=== PATIENT | male | born 1960 | race Caucasian/White ===

== ENCOUNTER 2017-11-03 08:09 | Inpatient (IN) | payer MEDICAID ==
[~2017-11-03] VITALS: Ht 175.3 cm; Wt 69.6 kg
[2017-11-03] MEDS ORDERED: ASPIRIN 81MG TABLET PO STA (08:15)
[2017-11-03 08:30] LABS: BASOPHILS % 0.8 % (0.0-2.0); EOSINOPHILS % 1.4 % (0.0-5.0); HEMATOCRIT. 34.2 % (42.0-52.0); HEMOGLOBIN. 11.5 g/dL (14.0-18.0); LYMPHOCYTES % 19.1 % (20.0-50.0); MEAN CORPUSCULAR HEMOGLOBIN 31.9 pg (28.0-32.0); MEAN CORPUSCULAR VOLUME 94.6 fL (80.0-94.0); MEAN PLATELET VOLUME 8.5 fl (7.4-10.4); MONOCYTES % 9.2 % (2.0-8.0); NEUTROPHILS % 69.5 % (40.0-76.0); PLATELET 195 x1000/uL (130-400); RED BLOOD CELL COUNT 3.61 mill/uL (4.7-6.1); RED CELL DISTRIBUTION WIDTH 14.1 % (11.6-14.6)
[2017-11-03] MEDS ORDERED: FENTANYL CITRATE/PF 50MCG/ML 2ML VIAL IV ONE (08:30)
[2017-11-03] MEDS ORDERED: ONDANSETRON HCL 4MG/2ML VIAL IV ONE (08:30)
[2017-11-03 08:39] LABS: INR 1.2; PROTHROMBIN TIME 12.8 sec (9.4-11.6)
[2017-11-03 08:48] LABS: CARBON DIOXIDE 31 mEq/L (21-32); CHLORIDE 97 mEq/L (98-107); PHOSPHORUS 2.3 mg/dL (2.5-4.9); TROPONIN I 0.03 ng/mL (0.00-0.04)
[2017-11-03] MEDS ORDERED: LEVOFLOXACIN 500MG PREMIX 100 ML IV ONE (09:00)
[2017-11-03] MEDS ORDERED: IPRATROPIUM/ALBUTEROL 0.5-3(2.5)MG/3ML NEB INH PRN (12:00)
[2017-11-03] MEDS ORDERED: GUAIFENESIN 200MG/10ML SUGAR FREE UDC PO PRN (12:00)
[2017-11-03] MEDS ORDERED: ENOXAPARIN 40MG/0.4ML SYR SUBCUT SCH (12:00)
[2017-11-03] MEDS ORDERED: LORAZEPAM 0.5MG TABLET PO PRN (12:00)
[2017-11-03] MEDS ORDERED: DEXTROSE 50% WATER 50ML SYRINGE IV PRN (12:00)
[2017-11-03] MEDS ORDERED: DOCUSATE SODIUM 100MG CAPSULE PO PRN (12:00)
[2017-11-03] MEDS ORDERED: MAGNESIUM/ALUMINUM HYDROXIDE/SIMETHICONE 30ML UDC PO PRN (12:00)
[2017-11-03] MEDS ORDERED: DIPHENHYDRAMINE 50MG/ML VIAL IV PRN (12:00)
[2017-11-03] MEDS ORDERED: NITROGLYCERIN 0.4MG TABLET SL SL PRN (12:00)
[2017-11-03] MEDS ORDERED: ZOLPIDEM TARTRATE 5MG TABLET PO PRN (12:00)
[2017-11-03] MEDS ORDERED: CLONIDINE 0.1MG TABLET PO PRN (12:00)
[2017-11-03] MEDS ORDERED: NA PHOS,M-B/NA PHOS,DI-BA ENEMA 118ML PR PRN (12:00)
[2017-11-03 13:00] VITALS: BP 153/83
[2017-11-03] MEDS: FAMOTIDINE 20MG/2ML VIAL IV SCH (13:00)
[2017-11-03] MEDS: BLOOD SUGAR DIAGNOSTIC STRIP TEST SCH ×3 (13:12→20:39)
[2017-11-03] MEDS: ENOXAPARIN 30MG/0.3ML SYR SUBCUT SCH (13:12)
[2017-11-03] MEDS: ONDANSETRON HCL 4MG/2ML VIAL IV PRN (13:12)
[2017-11-03] MEDS: TRAMADOL 50MG TABLET PO PRN ×2 (13:24→20:10)
[2017-11-03 13:45] VITALS: BP 153/83
[2017-11-03] MEDS: INSULIN LISPRO 100 UNITS/ML SUBCUT SCH ×3 (15:01→20:54)
[2017-11-03] MEDS: ACETAMINOPHEN 325MG TABLET PO PRN ×2 (15:03→22:36)
[2017-11-03 16:00] VITALS: BP 135/106
[2017-11-03 17:49] LABS: CREATINE KINASE MB FRACTION 2.6 ng/mL (0.5-3.6); TROPONIN I 0.03 ng/mL (0.00-0.04)
[2017-11-03 20:04] VITALS: BP 127/91
[2017-11-03] MEDS: METOPROLOL TARTRATE 25MG TABLET PO SCH (20:11)
[2017-11-03 20:49] LABS: *AMPHETAMINES SCREEN URINE NEGATIVE (NEGATIVE); *BARBITURATES SCREEN URINE NEGATIVE (NEGATIVE); *BENZODIAZEPINES SCREEN URINE NEGATIVE (NEGATIVE); *COCAINE SCREEN URINE NEGATIVE (NEGATIVE); CANNABINOID URINE SCREEN NEGATIVE (NEGATIVE); METHADONE URINE SCREEN NEGATIVE (NEGATIVE); OPIATES URINE SCREEN NEGATIVE (NEGATIVE); PHENCYCLIDINE URINE SCREEN NEGATIVE (NEGATIVE)
[2017-11-03] MEDS ORDERED: FAMOTIDINE 20MG/2ML VIAL IV SCH (21:00)
[2017-11-04] VITALS (7 sets, daily range): BP systolic 119–143; BP diastolic 61–84
[2017-11-04 01:12] LABS: CREATINE KINASE MB FRACTION 2.9 ng/mL (0.5-3.6); TROPONIN I 0.03 ng/mL (0.00-0.04)
[2017-11-04] MEDS: TRAMADOL 50MG TABLET PO PRN ×4 (02:44→22:14)
[2017-11-04] MEDS: BLOOD SUGAR DIAGNOSTIC STRIP TEST SCH ×4 (06:52→21:36)
[2017-11-04] MEDS: FAMOTIDINE 20MG/2ML VIAL IV SCH (08:08)
[2017-11-04] MEDS: ONDANSETRON HCL 4MG/2ML VIAL IV PRN ×2 (08:08→17:50)
[2017-11-04] MEDS: INSULIN LISPRO 100 UNITS/ML SUBCUT SCH ×4 (08:08→21:00)
[2017-11-04] MEDS: ENOXAPARIN 30MG/0.3ML SYR SUBCUT SCH (08:08)
[2017-11-04] MEDS: METOPROLOL TARTRATE 25MG TABLET PO SCH ×3 (08:14→22:01)
[2017-11-04] MEDS ORDERED: ASPIRIN 325MG EC TABLET PO SCH (09:00)
[2017-11-04 16:46] LABS: BASOPHILS % 0.9 % (0.0-2.0); EOSINOPHILS % 0.7 % (0.0-5.0); HEMATOCRIT. 35.3 % (42.0-52.0); HEMOGLOBIN. 11.7 g/dL (14.0-18.0); LYMPHOCYTES % 17.7 % (20.0-50.0); MEAN CORPUSCULAR HEMOGLOBIN 32.2 pg (28.0-32.0); MEAN CORPUSCULAR VOLUME 96.8 fL (80.0-94.0); MEAN PLATELET VOLUME 9.6 fl (7.4-10.4); MONOCYTES % 8.4 % (2.0-8.0); NEUTROPHILS % 72.3 % (40.0-76.0); PLATELET 152 x1000/uL (130-400); RED BLOOD CELL COUNT 3.65 mill/uL (4.7-6.1); RED CELL DISTRIBUTION WIDTH 14.2 % (11.6-14.6)
== END 2017-11-04 22:40 | disposition home or self-care (01) | DRG 203 ==
LOC: ER 08:19 → 7WST 08:28 → EDBEDREQ 08:33 → ENRESERV 10:46
PROVIDERS: ADMIT Internal Medicine; ATTEND Internal Medicine
DX: R07.89 Other chest pain (principal); N17.9 Acute kidney failure, unspecified; E44.0 Moderate protein-calorie malnutrition; E11.22 Type 2 diabetes mellitus with diabetic chronic kidney disease; I12.0 Hypertensive chronic kidney disease with stage 5 chronic kidney disease or end stage renal disease; E83.39 Other disorders of phosphorus metabolism; E11.51 Type 2 diabetes mellitus with diabetic peripheral angiopathy without gangrene; D63.8 Anemia in other chronic diseases classified elsewhere; N18.6 End stage renal disease; Z79.82 Long term (current) use of aspirin; Z89.512 Acquired absence of left leg below knee; Z99.2 Dependence on renal dialysis; Z86.19 Personal history of other infectious and parasitic diseases; Z88.0 Allergy status to penicillin; Z79.899 Other long term (current) drug therapy; Z76.5 Malingerer [conscious simulation]; Z68.22 Body mass index [BMI] 22.0-22.9, adult
CPT/HCPCS: 36415; 71010; 80051; 80053; 80061; 80305; 82550; 82553; 82962; 83036; 83690; 83735; 84100; 84484; 85025; 85610; 85730; 93005; 93970; 96374; 96375; 99291; J1650; J1815; J1956; J2405; J3010; J3490; J7030

== ENCOUNTER 2017-11-30 15:09 | Emergency (ER) | payer MEDICAID ==
[~2017-11-30] VITALS: Ht 170.2 cm; Wt 82.0 kg
[2017-11-30 16:46] LABS: BASOPHILS % 0.5 % (0.0-2.0); EOSINOPHILS % 0.9 % (0.0-5.0); HEMATOCRIT. 24.3 % (42.0-52.0); HEMOGLOBIN. 8.7 g/dL (14.0-18.0); LYMPHOCYTES % 12.2 % (20.0-50.0); MEAN CORPUSCULAR HEMOGLOBIN 34.3 pg (28.0-32.0); MEAN CORPUSCULAR VOLUME 95.9 fL (80.0-94.0); MEAN PLATELET VOLUME 7.7 fl (7.4-10.4); MONOCYTES % 8.3 % (2.0-8.0); NEUTROPHILS % 78.1 % (40.0-76.0); PLATELET 277 x1000/uL (130-400); RED BLOOD CELL COUNT 2.54 mill/uL (4.7-6.1); RED CELL DISTRIBUTION WIDTH 16.5 % (11.6-14.6)
[2017-11-30 16:52] LABS: CHLORIDE 99 mEq/L (98-107)
[2017-11-30 16:53] LABS: INR 1.3; PROTHROMBIN TIME 13.8 sec (9.4-11.6)
[2017-11-30 16:58] LABS: CARBON DIOXIDE 25 mEq/L (21-32)
[2017-11-30 17:03] LABS: TROPONIN I 0.04 ng/mL (0.00-0.04)
[2017-11-30] MEDS ORDERED: MORPHINE SULFATE 4 MG/ML CPJ (NOT FOR IM USE) IV ONE (20:15)
[2017-12-01 00:23] VITALS: BP 145/72
== END 2017-12-01 00:24 | disposition home or self-care (01) ==
LOC: ER 15:30
DX: R18.8 Other ascites (principal); I12.0 Hypertensive chronic kidney disease with stage 5 chronic kidney disease or end stage renal disease; E11.22 Type 2 diabetes mellitus with diabetic chronic kidney disease; N18.6 End stage renal disease; Z99.2 Dependence on renal dialysis; Z88.0 Allergy status to penicillin
CPT/HCPCS: 36415; 49083; 71045; 74176; 80053; 83880; 84484; 85025; 85610; 93005; 96374; 99285; J2270; Z7610

== ENCOUNTER 2018-01-13 12:13 | Emergency (ER) | payer MEDICAID, OTHER ==
[~2018-01-13] VITALS: Ht 167.6 cm; Wt 69.0 kg
[~2018-01-13 12:13] MED LIST: VANC1PLA11 IV
[2018-01-13] MEDS ORDERED: MORPHINE SULFATE 10 MG/ML CPJ IM ONE (12:45)
[2018-01-13] MEDS ORDERED: IBUPROFEN 600MG TABLET PO ONE (15:00)
[2018-01-13 16:13] VITALS: BP 162/78
== END 2018-01-13 16:15 | disposition home or self-care (01) ==
LOC: ER 12:28
DX: S30.0XXA Contusion of lower back and pelvis, initial encounter (principal); E11.9 Type 2 diabetes mellitus without complications; I10 Essential (primary) hypertension; Z88.0 Allergy status to penicillin; Z99.2 Dependence on renal dialysis; W19.XXXA Unspecified fall, initial encounter; Y93.89 Activity, other specified; Y92.89 Other specified places as the place of occurrence of the external cause; Y99.8 Other external cause status
CPT/HCPCS: 72131; 72192; 99284; J2270; Z7610

== ENCOUNTER 2018-02-01 08:18 | Emergency (ER) | payer MEDICARE, MEDICAID ==
[~2018-02-01] VITALS: Ht 172.7 cm; Wt 91.0 kg
[2018-02-01] MEDS ORDERED: ONDANSETRON HCL 4MG/2ML VIAL IV ONE (08:45)
[2018-02-01] MEDS ORDERED: MORPHINE SULFATE 4 MG/ML CPJ (NOT FOR IM USE) IV ONE (08:45)
[2018-02-01 09:29] LABS: BASOPHILS % 0.6 % (0.0-2.0); EOSINOPHILS % 0.5 % (0.0-5.0); HEMATOCRIT. 34.5 % (42.0-52.0); HEMOGLOBIN. 11.4 g/dL (14.0-18.0); LYMPHOCYTES % 9.4 % (20.0-50.0); MEAN CORPUSCULAR HEMOGLOBIN 32.2 pg (28.0-32.0); MEAN PLATELET VOLUME 9.1 fl (7.4-10.4); MONOCYTES % 8.4 % (2.0-8.0); NEUTROPHILS % 81.1 % (40.0-76.0); PLATELET 225 x1000/uL (130-400); RED BLOOD CELL COUNT 3.55 mill/uL (4.7-6.1); RED CELL DISTRIBUTION WIDTH 18.1 % (11.6-14.6)
[2018-02-01 09:38] LABS: INR 1.3
[2018-02-01 10:14] LABS: CHLORIDE 99 mEq/L (98-107)
[2018-02-01 10:22] LABS: PHOSPHORUS 5.3 mg/dL (2.5-4.9); TROPONIN I 0.03 ng/mL (0.00-0.04)
[2018-02-01 14:36] VITALS: BP 143/84
== END 2018-02-01 14:42 | disposition home or self-care (01) ==
LOC: ER 08:36 → CANBEDREQ 21:18
DX: S20.212A Contusion of left front wall of thorax, initial encounter (principal); S40.012A Contusion of left shoulder, initial encounter; S70.02XA Contusion of left hip, initial encounter; I12.0 Hypertensive chronic kidney disease with stage 5 chronic kidney disease or end stage renal disease; E11.22 Type 2 diabetes mellitus with diabetic chronic kidney disease; N17.9 Acute kidney failure, unspecified; N18.6 End stage renal disease; R26.89 Other abnormalities of gait and mobility; Z88.0 Allergy status to penicillin; Z89.512 Acquired absence of left leg below knee; Z99.2 Dependence on renal dialysis; W01.0XXA Fall on same level from slipping, tripping and stumbling without subsequent striking against object, initial encounter; Y93.E1 Activity, personal bathing and showering; Y92.89 Other specified places as the place of occurrence of the external cause; Y99.8 Other external cause status
CPT/HCPCS: 36415; 70450; 71045; 71250; 73030; 74176; 80053; 83690; 83735; 84100; 84484; 85025; 85610; 85730; 86850; 86900; 86901; 93005; 96374; 96375; 99285; J2270; J2405; A4565

== ENCOUNTER 2018-03-10 16:02 | Emergency (ER) | payer MEDICAID ==
[~2018-03-10] VITALS: Ht 175.3 cm; Wt 66.0 kg
[2018-03-10] MEDS ORDERED: HYDROCODONE/ACETAMINOPHEN 5/325MG TABLET PO ONE (16:30)
[2018-03-10] MEDS ORDERED: BACITRACIN ZINC OINT UDPKT TOP ONE (16:30)
[2018-03-10 16:49] VITALS: BP 137/66
== END 2018-03-10 20:02 | disposition home or self-care (01) ==
LOC: ER 16:02
DX: T24.212A Burn of second degree of left thigh, initial encounter (principal); T21.22XA Burn of second degree of abdominal wall, initial encounter; E11.22 Type 2 diabetes mellitus with diabetic chronic kidney disease; I12.0 Hypertensive chronic kidney disease with stage 5 chronic kidney disease or end stage renal disease; N18.6 End stage renal disease; Z88.0 Allergy status to penicillin; Z99.2 Dependence on renal dialysis; Z89.512 Acquired absence of left leg below knee; X10.0XXA Contact with hot drinks, initial encounter; Y93.89 Activity, other specified; Y92.89 Other specified places as the place of occurrence of the external cause; Y99.8 Other external cause status
CPT/HCPCS: 16020; 93005; 99284

== ENCOUNTER 2018-07-14 22:20 | Emergency (ER) | payer MEDICAID ==
[~2018-07-14] VITALS: Ht 172.7 cm; Wt 70.0 kg
[2018-07-14] MEDS ORDERED: TETANUS, DIPHTHERIA, PERTUSSIS VAC/PF 0.5ML (>7YR OLD) IM ONE (23:30)
[2018-07-14] MEDS ORDERED: ONDANSETRON 4MG ODT PO ONE (23:45)
[2018-07-15] MEDS ORDERED: HYDROCODONE/ACETAMINOPHEN 5/325MG TABLET PO ONE (01:30)
[2018-07-15 02:03] VITALS: BP 137/78
== END 2018-07-15 02:04 | disposition home or self-care (01) ==
LOC: ER 22:20
DX: S90.31XA Contusion of right foot, initial encounter (principal); E11.9 Type 2 diabetes mellitus without complications; I10 Essential (primary) hypertension; N28.9 Disorder of kidney and ureter, unspecified; K75.9 Inflammatory liver disease, unspecified; Z89.411 Acquired absence of right great toe; Z89.512 Acquired absence of left leg below knee; Z99.2 Dependence on renal dialysis; Z88.0 Allergy status to penicillin; Z79.899 Other long term (current) drug therapy; F17.200 Nicotine dependence, unspecified, uncomplicated; X58.XXXA Exposure to other specified factors, initial encounter; Y93.89 Activity, other specified; Y92.89 Other specified places as the place of occurrence of the external cause; Y99.8 Other external cause status
CPT/HCPCS: 73620; 90471; 90715; 99284; Q0162; Z7610

== ENCOUNTER 2018-08-18 11:33 | Inpatient (IN) | payer MEDICAID ==
[~2018-08-18] VITALS: Ht 175.3 cm; Wt 66.2 kg
[2018-08-18] MEDS ORDERED: MORPHINE SULFATE 4 MG/ML CPJ (NOT FOR IM USE) IV STA (11:55)
[2018-08-18] MEDS ORDERED: ONDANSETRON HCL 4MG/2ML INJ IV STA (11:55)
[2018-08-18 12:42] LABS: HEMATOCRIT. 34.6 % (42.0-52.0); HEMOGLOBIN. 11.6 g/dL (14.0-18.0); MEAN CORPUSCULAR HEMOGLOBIN 32.6 pg (28.0-32.0); MEAN CORPUSCULAR VOLUME 97.4 fL (80.0-94.0); MEAN PLATELET VOLUME 9.4 fl (7.4-10.4); PLATELET 218 x1000/uL (130-400); RED BLOOD CELL COUNT 3.56 mill/uL (4.7-6.1); RED CELL DISTRIBUTION WIDTH 14.4 % (11.6-14.6)
[2018-08-18 12:50] LABS: CHLORIDE 93 mEq/L (98-107)
[2018-08-18 13:10] LABS: PLATELET ESTIMATE NORMAL
[2018-08-18] MEDS ORDERED: IPRATROPIUM/ALBUTEROL 0.5-3(2.5)MG/3ML NEB INH PRN (14:15)
[2018-08-18] MEDS ORDERED: MAGNESIUM/ALUMINUM HYDROXIDE/SIMETHICONE 30ML UDC PO PRN (14:15)
[2018-08-18] MEDS ORDERED: LORAZEPAM 0.5MG TABLET PO PRN (14:15)
[2018-08-18] MEDS ORDERED: CLONIDINE 0.1MG TABLET PO PRN (14:15)
[2018-08-18] MEDS ORDERED: DOCUSATE SODIUM 100MG CAPSULE PO PRN (14:15)
[2018-08-18] MEDS ORDERED: ACETAMINOPHEN 325MG TABLET PO PRN (14:15)
[2018-08-18] MEDS ORDERED: GUAIFENESIN 200MG/10ML SUGAR FREE UDC PO PRN (14:15)
[2018-08-18] MEDS ORDERED: ZOLPIDEM TARTRATE 5MG TABLET PO PRN (14:15)
[2018-08-18] MEDS ORDERED: NITROGLYCERIN 0.4MG TABLET SL SL PRN (14:15)
[2018-08-18] MEDS: TRAMADOL 50MG TABLET PO PRN (16:23)
[2018-08-18] MEDS: ONDANSETRON HCL 4MG/2ML INJ IV PRN ×2 (16:23→21:25)
[2018-08-18] MEDS ORDERED: DEXTROSE 50% WATER 50ML SYRINGE IV PRN (16:45)
[2018-08-18 16:47] VITALS: BP 142/76
[2018-08-18 17:20] VITALS: BP 142/76
[2018-08-18] MEDS: DIPHENHYDRAMINE 50MG/ML VIAL IV PRN (17:51)
[2018-08-18] MEDS: SEVELAMER CARBONATE 800 MG TABLET PO SCH (17:51)
[2018-08-18] MEDS: BLOOD SUGAR DIAGNOSTIC STRIP TEST SCH ×2 (17:51→21:17)
[2018-08-18] MEDS: INSULIN LISPRO 100 UNITS/ML SUBCUT SCH ×2 (18:26→21:00)
[2018-08-18 20:00] VITALS: BP 127/68
[2018-08-18] MEDS: METOPROLOL TARTRATE 25MG TABLET PO SCH (21:25)
[2018-08-18] MEDS: GUAIFENESIN/DM 600MG/30MG ER TAB 12HR PO SCH (21:25)
[2018-08-18] MEDS: ENOXAPARIN 30MG/0.3ML SYR SUBCUT SCH (21:26)
[2018-08-18 23:28] LABS: CREATINE KINASE MB FRACTION 4.7 ng/mL (0.5-3.6)
[2018-08-19] VITALS: BP 116/63
[2018-08-19] MEDS: TRAMADOL 50MG TABLET PO PRN ×2 (02:45→19:55)
[2018-08-19] MEDS: DIPHENHYDRAMINE 50MG/ML VIAL IV PRN ×3 (02:46→19:42)
[2018-08-19 04:00] VITALS: BP 101/70
[2018-08-19] MEDS: BLOOD SUGAR DIAGNOSTIC STRIP TEST SCH ×4 (06:43→20:56)
[2018-08-19] MEDS: SEVELAMER CARBONATE 800 MG TABLET PO SCH ×3 (06:46→17:01)
[2018-08-19] MEDS: INSULIN LISPRO 100 UNITS/ML SUBCUT SCH ×4 (07:01→20:55)
[2018-08-19 08:00] VITALS: BP 131/71
[2018-08-19] MEDS: METOPROLOL TARTRATE 25MG TABLET PO SCH ×2 (09:00→20:56)
[2018-08-19] MEDS: FOLIC ACID/VITAMIN B COMP W-C TABLET PO SCH (10:02)
[2018-08-19] MEDS: FAMOTIDINE 20MG TABLET PO SCH (10:02)
[2018-08-19] MEDS: GUAIFENESIN/DM 600MG/30MG ER TAB 12HR PO SCH ×2 (10:02→20:55)
[2018-08-19] MEDS: ASPIRIN 325MG EC TABLET PO SCH (10:03)
[2018-08-19 12:00] VITALS: BP 119/70
[2018-08-19 13:38] LABS: AMMONIA 102 uMol/L (<32)
[2018-08-19] MEDS: LACTULOSE 20G/30ML UDC PO SCH ×2 (14:51→20:55)
[2018-08-19 16:00] VITALS: BP 116/70
[2018-08-19] MEDS: ONDANSETRON HCL 4MG/2ML INJ IV PRN (17:12)
[2018-08-19 20:00] VITALS: BP 97/70
[2018-08-19] MEDS: ENOXAPARIN 30MG/0.3ML SYR SUBCUT SCH (20:55)
[2018-08-20] VITALS (7 sets, daily range): BP systolic 99–171; BP diastolic 60–87
[2018-08-20] MEDS ORDERED: INFLUENZA VIRUS VACCINE 0.5ML SYR IM ONE (02:45)
[2018-08-20] MEDS: TRAMADOL 50MG TABLET PO PRN (03:33)
[2018-08-20] MEDS: BLOOD SUGAR DIAGNOSTIC STRIP TEST SCH ×3 (06:07→17:44)
[2018-08-20] MEDS: LACTULOSE 20G/30ML UDC PO SCH ×3 (06:07→22:00)
[2018-08-20] MEDS: SEVELAMER CARBONATE 800 MG TABLET PO SCH ×3 (06:07→17:44)
[2018-08-20] MEDS: INSULIN LISPRO 100 UNITS/ML SUBCUT SCH ×3 (06:32→17:44)
[2018-08-20 07:14] LABS: BASOPHILS % 0.5 % (0.0-2.0); EOSINOPHILS % 0.7 % (0.0-5.0); HEMATOCRIT. 34.2 % (42.0-52.0); HEMOGLOBIN. 11.6 g/dL (14.0-18.0); MEAN CORPUSCULAR HEMOGLOBIN 33.5 pg (28.0-32.0); MEAN CORPUSCULAR VOLUME 98.8 fL (80.0-94.0); MEAN PLATELET VOLUME 9.8 fl (7.4-10.4); MONOCYTES % 7.9 % (2.0-8.0); NEUTROPHILS % 78.9 % (40.0-76.0); PLATELET 177 x1000/uL (130-400); RED BLOOD CELL COUNT 3.46 mill/uL (4.7-6.1); RED CELL DISTRIBUTION WIDTH 14.5 % (11.6-14.6)
[2018-08-20] MEDS: METOPROLOL TARTRATE 25MG TABLET PO SCH ×2 (09:00→22:54)
[2018-08-20] MEDS: FAMOTIDINE 20MG TABLET PO SCH (09:43)
[2018-08-20] MEDS: GUAIFENESIN/DM 600MG/30MG ER TAB 12HR PO SCH ×2 (09:43→22:54)
[2018-08-20] MEDS: FOLIC ACID/VITAMIN B COMP W-C TABLET PO SCH (09:43)
[2018-08-20] MEDS: ASPIRIN 325MG EC TABLET PO SCH (09:43)
[2018-08-20] MEDS: ENOXAPARIN 30MG/0.3ML SYR SUBCUT SCH (22:54)
== END 2018-08-20 23:05 | disposition home or self-care (01) | DRG 279 ==
LOC: ER 11:35 → EDBEDREQ 14:09 → ENRESERV 14:45 → 8WST 14:45
PROVIDERS: ADMIT Internal Medicine; ATTEND Internal Medicine
PROC: 5A1D70Z Performance of Urinary Filtration, Intermittent, Less than 6 Hours Per Day (ICD-10-PCS; principal; 2018-08-20)
DX: K72.90 Hepatic failure, unspecified without coma (principal); I13.2 Hypertensive heart and chronic kidney disease with heart failure and with stage 5 chronic kidney disease, or end stage renal disease; E44.0 Moderate protein-calorie malnutrition; E11.22 Type 2 diabetes mellitus with diabetic chronic kidney disease; N18.6 End stage renal disease; E11.65 Type 2 diabetes mellitus with hyperglycemia; K74.60 Unspecified cirrhosis of liver; E83.51 Hypocalcemia; R07.89 Other chest pain; Z99.2 Dependence on renal dialysis; E87.1 Hypo-osmolality and hyponatremia; D63.8 Anemia in other chronic diseases classified elsewhere; I50.33 Acute on chronic diastolic (congestive) heart failure; Z79.4 Long term (current) use of insulin; Z82.49 Family history of ischemic heart disease and other diseases of the circulatory system; Z89.512 Acquired absence of left leg below knee; Z90.49 Acquired absence of other specified parts of digestive tract; Z68.21 Body mass index [BMI] 21.0-21.9, adult; Z88.0 Allergy status to penicillin
CPT/HCPCS: 36415; 71045; 74176; 80048; 80053; 80061; 82140; 82550; 82553; 82962; 83036; 83880; 84484; 85025; 93005; 93970; 96374; 96375; 99291; J1200; J1650; J1815; J2270; J2405

== ENCOUNTER 2018-08-23 22:30 | Inpatient (IN) | payer MEDICAID, OTHER ==
[~2018-08-23] VITALS: Ht 170.2 cm; Wt 74.4 kg
[2018-08-23] MEDS ORDERED: MORPHINE SULFATE 4 MG/ML CPJ (NOT FOR IM USE) IV STA (23:01)
[2018-08-23] MEDS ORDERED: SODIUM CHLORIDE 0.9% 1,000 ML IV ONE (23:01)
[2018-08-23] MEDS ORDERED: ONDANSETRON HCL 4MG/2ML INJ IV STA (23:01)
[2018-08-23 23:48] LABS: HEMATOCRIT. 36.5 % (42.0-52.0); MEAN CORPUSCULAR HEMOGLOBIN 33.2 pg (28.0-32.0); MEAN CORPUSCULAR VOLUME 101.1 fL (80.0-94.0); MEAN PLATELET VOLUME 9.9 fl (7.4-10.4); PLATELET 170 x1000/uL (130-400); RED BLOOD CELL COUNT 3.61 mill/uL (4.7-6.1); RED CELL DISTRIBUTION WIDTH 14.4 % (11.6-14.6)
[2018-08-23 23:49] LABS: CHLORIDE 88 mEq/L (98-107)
[2018-08-23 23:51] LABS: INR 1.6
[2018-08-24] VITALS (66 sets, daily range): BP systolic 90–143; BP diastolic 45–94
[2018-08-24] MEDS ORDERED: SODIUM CHLORIDE 0.9% 1,000 ML IV ONE (00:30)
[2018-08-24] MEDS ORDERED: INSULIN REGULAR (DRIP) 100 UNITS in SODIUM CHLORIDE 0.9% 100 ML IV ONE ×2 (00:45→01:45)
[2018-08-24] MEDS ORDERED: VANCOMYCIN 1 G PREMIX 200 ML IV SCH (00:45)
[2018-08-24] MEDS ORDERED: POTASSIUM PHOS,M-BASIC-D-BASIC 20 MMOL in SODIUM CHLORIDE 0.9% 250 ML IV SCH (00:45)
[2018-08-24 01:55] LABS: PLATELET ESTIMATE NORMAL
[2018-08-24] MEDS ORDERED: PIPERACILLIN/TAZOBACTAM 3.375GM/50ML PREMIX IV SCH (03:00)
[2018-08-24] MEDS ORDERED: MORPHINE SULFATE 4 MG/ML CPJ (NOT FOR IM USE) IV PRN (08:45)
[2018-08-24] MEDS ORDERED: ONDANSETRON HCL 4MG/2ML INJ IV PRN (09:15)
[2018-08-24] MEDS ORDERED: DEXTROSE 50% WATER 50ML SYRINGE IV PRN (12:30)
[2018-08-24] MEDS ORDERED: INSULIN GLARGINE UD 100 UNITS/ML SYR SUBCUT SCH (13:30)
[2018-08-24] MEDS: LEVOFLOXACIN 500MG PREMIX 100 ML IV SCH (13:42)
[2018-08-24] MEDS ORDERED: ACETAMINOPHEN 325MG TABLET PO PRN (14:30)
[2018-08-24] MEDS: MORPHINE SULFATE 4 MG/ML CPJ (NOT FOR IM USE) IV PRN ×2 (16:20→20:06)
[2018-08-24] MEDS: BLOOD SUGAR DIAGNOSTIC STRIP TEST SCH ×2 (16:47→20:05)
[2018-08-24] MEDS: INSULIN LISPRO 100 UNITS/ML SUBCUT SCH ×2 (17:33→20:07)
[2018-08-24] MEDS: HYDROCODONE/ACETAMINOPHEN 5/325MG TABLET PO PRN (22:38)
[2018-08-24] MEDS: IPRATROPIUM/ALBUTEROL 0.5-3(2.5)MG/3ML NEB HHN PRN (22:41)
[2018-08-25] VITALS (49 sets, daily range): BP systolic 84–162; BP diastolic 44–83
[2018-08-25] MEDS: MORPHINE SULFATE 4 MG/ML CPJ (NOT FOR IM USE) IV PRN ×4 (00:16→22:36)
[2018-08-25 00:56] LABS: AMMONIA < 10 uMol/L (<32)
[2018-08-25] MEDS: BLOOD SUGAR DIAGNOSTIC STRIP TEST SCH ×4 (06:30→20:00)
[2018-08-25 06:44] LABS: HEMATOCRIT. 33.5 % (42.0-52.0); HEMOGLOBIN. 10.9 g/dL (14.0-18.0); MEAN CORPUSCULAR HEMOGLOBIN 32.4 pg (28.0-32.0); MEAN CORPUSCULAR VOLUME 99.4 fL (80.0-94.0); MEAN PLATELET VOLUME 9.7 fl (7.4-10.4); PLATELET 150 x1000/uL (130-400); RED BLOOD CELL COUNT 3.37 mill/uL (4.7-6.1); RED CELL DISTRIBUTION WIDTH 14.3 % (11.6-14.6)
[2018-08-25] MEDS: INSULIN LISPRO 100 UNITS/ML SUBCUT SCH ×4 (06:48→20:06)
[2018-08-25] MEDS: PANTOPRAZOLE SODIUM 40 MG/VIAL IV SCH (08:39)
[2018-08-25] MEDS: HYDROCODONE/ACETAMINOPHEN 5/325MG TABLET PO PRN ×3 (08:40→19:27)
[2018-08-25] MEDS ORDERED: ENOXAPARIN 40MG/0.4ML SYR SUBCUT SCH (09:00)
[2018-08-25] MEDS ORDERED: ENOXAPARIN 30MG/0.3ML SYR SUBCUT SCH (09:00)
[2018-08-25 12:01] LABS: PLATELET ESTIMATE NORMAL
[2018-08-25 13:20] LABS: INR 1.4; PROTHROMBIN TIME 14.4 sec (9.1-11.1)
[2018-08-25] MEDS: DIPHENHYDRAMINE 50MG/ML VIAL IV PRN (20:06)
[2018-08-26] VITALS (48 sets, daily range): BP systolic 74–126; BP diastolic 40–76
[2018-08-26] MEDS: HYDROCODONE/ACETAMINOPHEN 5/325MG TABLET PO PRN ×3 (01:19→19:52)
[2018-08-26] MEDS: MORPHINE SULFATE 4 MG/ML CPJ (NOT FOR IM USE) IV PRN ×2 (04:11→13:56)
[2018-08-26] MEDS: BLOOD SUGAR DIAGNOSTIC STRIP TEST SCH ×4 (06:59→20:01)
[2018-08-26] MEDS: INSULIN LISPRO 100 UNITS/ML SUBCUT SCH ×4 (07:03→20:02)
[2018-08-26 08:25] LABS: HEMATOCRIT. 31.7 % (42.0-52.0); HEMOGLOBIN. 10.7 g/dL (14.0-18.0); MEAN CORPUSCULAR VOLUME 98.3 fL (80.0-94.0); PLATELET 117 x1000/uL (130-400); RED BLOOD CELL COUNT 3.23 mill/uL (4.7-6.1); RED CELL DISTRIBUTION WIDTH 14.8 % (11.6-14.6)
[2018-08-26 08:33] LABS: INR 1.5; PROTHROMBIN TIME 14.5 sec (9.1-11.1)
[2018-08-26] MEDS ORDERED: SODIUM BICARBONATE 4% (2.4MEQ) 5ML VIAL IV ONE (10:11)
[2018-08-26] MEDS ORDERED: LIDOCAINE HCL 1% 20ML VIAL (Pyxis) INJ ONE (10:11)
[2018-08-26] MEDS: PANTOPRAZOLE SODIUM 40 MG/VIAL IV SCH (11:39)
[2018-08-26 16:03] LABS: NUCLEATED RED BLOOD CELLS 1 /100 WBC
[2018-08-26 16:05] LABS: PLATELET ESTIMATE SLIGHTLY DECREASED
[2018-08-26] MEDS: LEVOFLOXACIN 500MG PREMIX 100 ML IV SCH (16:10)
[2018-08-26] MEDS: DIPHENHYDRAMINE 50MG/ML VIAL IV PRN (20:44)
[2018-08-27] VITALS (30 sets, daily range): BP systolic 78–157; BP diastolic 33–85
[2018-08-27] MEDS: MORPHINE SULFATE 4 MG/ML CPJ (NOT FOR IM USE) IV PRN ×3 (00:57→22:13)
[2018-08-27] MEDS ORDERED: LORAZEPAM 2MG/ML CPJ IV PRN (05:15)
[2018-08-27] MEDS ORDERED: DEXT 5%/0.45% NACL KCL 20MEQ/L 1,000 ML IV SCH (05:15)
[2018-08-27] MEDS ORDERED: LEVETIRACETAM 500 MG in SODIUM CHLORIDE 0.9% 100 ML IV SCH ×2 (05:15→06:00)
[2018-08-27] MEDS ORDERED: PROPOFOL 10MG/ML 100ML 100 ML IV PRN (05:15)
[2018-08-27] MEDS ORDERED: IPRATROPIUM/ALBUTEROL 0.5-3(2.5)MG/3ML NEB HHN SCH (06:00)
[2018-08-27] MEDS: BLOOD SUGAR DIAGNOSTIC STRIP TEST SCH ×5 (06:39→20:22)
[2018-08-27] MEDS: INSULIN LISPRO 100 UNITS/ML SUBCUT SCH ×4 (06:54→20:27)
[2018-08-27] MEDS: PANTOPRAZOLE SODIUM 40 MG/VIAL IV SCH (07:39)
[2018-08-27] MEDS: HYDROCODONE/ACETAMINOPHEN 5/325MG TABLET PO PRN ×3 (07:40→17:37)
[2018-08-27] MEDS ORDERED: PANTOPRAZOLE SODIUM 40 MG/VIAL IV SCH (09:00)
[2018-08-27] MEDS ORDERED: MORPHINE SULFATE 4 MG/ML CPJ (NOT FOR IM USE) IV SCH (09:15)
[2018-08-27] MEDS ORDERED: LIDOCAINE HCL/EPINEPHRINE 1%-EPI 1:100,000 20 ML VIAL IJ SCH (09:15)
[2018-08-27 11:16] LABS: HEMATOCRIT. 31.4 % (42.0-52.0); HEMOGLOBIN. 10.3 g/dL (14.0-18.0); MEAN CORPUSCULAR HEMOGLOBIN 32.4 pg (28.0-32.0); MEAN CORPUSCULAR VOLUME 98.5 fL (80.0-94.0); MEAN PLATELET VOLUME 9.9 fl (7.4-10.4); PLATELET 95 x1000/uL (130-400); RED BLOOD CELL COUNT 3.19 mill/uL (4.7-6.1); RED CELL DISTRIBUTION WIDTH 14.3 % (11.6-14.6)
[2018-08-27 12:53] LABS: PLATELET ESTIMATE SLIGHTLY DECREASED
[2018-08-27] MEDS: SODIUM HYPOCHLORITE 0.125% 473ML SOLUTION TOP SCH (13:04)
[2018-08-27] MEDS: DIPHENHYDRAMINE 50MG/ML VIAL IV PRN (23:54)
[2018-08-28] VITALS (11 sets, daily range): BP systolic 99–141; BP diastolic 51–68
[2018-08-28] MEDS: SODIUM HYPOCHLORITE 0.125% 473ML SOLUTION TOP SCH ×2 (01:50→13:18)
[2018-08-28] MEDS: HYDROCODONE/ACETAMINOPHEN 5/325MG TABLET PO PRN ×2 (02:04→20:49)
[2018-08-28] MEDS: BLOOD SUGAR DIAGNOSTIC STRIP TEST SCH ×4 (07:30→21:32)
[2018-08-28] MEDS: PANTOPRAZOLE SODIUM 40 MG/VIAL IV SCH (08:25)
[2018-08-28] MEDS: INSULIN LISPRO 100 UNITS/ML SUBCUT SCH ×4 (08:26→21:46)
[2018-08-28] MEDS: MORPHINE SULFATE 4 MG/ML CPJ (NOT FOR IM USE) IV PRN ×4 (08:29→23:26)
[2018-08-28] MEDS: DIPHENHYDRAMINE 50MG/ML VIAL IV PRN (13:13)
[2018-08-28] MEDS: LEVOFLOXACIN 500MG PREMIX 100 ML IV SCH (17:44)
[2018-08-29] VITALS (11 sets, daily range): BP systolic 115–142; BP diastolic 56–73
[2018-08-29] MEDS: SODIUM HYPOCHLORITE 0.125% 473ML SOLUTION TOP SCH ×2 (01:04→15:15)
[2018-08-29] MEDS: HYDROCODONE/ACETAMINOPHEN 5/325MG TABLET PO PRN ×4 (01:56→20:41)
[2018-08-29 06:57] LABS: INR 1.6; PROTHROMBIN TIME 15.9 sec (9.1-11.1)
[2018-08-29 07:16] LABS: HEMATOCRIT. 30.9 % (42.0-52.0); HEMOGLOBIN. 10.6 g/dL (14.0-18.0); MEAN CORPUSCULAR HEMOGLOBIN 33.4 pg (28.0-32.0); MEAN CORPUSCULAR VOLUME 97.3 fL (80.0-94.0); MEAN PLATELET VOLUME 10.2 fl (7.4-10.4); PLATELET 111 x1000/uL (130-400); RED BLOOD CELL COUNT 3.17 mill/uL (4.7-6.1); RED CELL DISTRIBUTION WIDTH 14.7 % (11.6-14.6)
[2018-08-29] MEDS: BLOOD SUGAR DIAGNOSTIC STRIP TEST SCH ×4 (08:05→20:41)
[2018-08-29 08:10] LABS: PHOSPHORUS 6.2 mg/dL (2.5-4.9)
[2018-08-29] MEDS: INSULIN LISPRO 100 UNITS/ML SUBCUT SCH ×4 (08:24→20:47)
[2018-08-29] MEDS: PANTOPRAZOLE SODIUM 40 MG/VIAL IV SCH (09:43)
[2018-08-29] MEDS: DIPHENHYDRAMINE 50MG/ML VIAL IV PRN (12:59)
[2018-08-29 16:56] LABS: NUCLEATED RED BLOOD CELLS 1 /100 WBC; PLATELET ESTIMATE DECREASED
[2018-08-29] MEDS: BUDESONIDE 0.5MG/2ML NEB HHN SCH (21:40)
[2018-08-30] VITALS (9 sets, daily range): BP systolic 112–156; BP diastolic 54–81
[2018-08-30] MEDS: SODIUM HYPOCHLORITE 0.125% 473ML SOLUTION TOP SCH ×2 (04:08→15:13)
[2018-08-30] MEDS: HYDROCODONE/ACETAMINOPHEN 5/325MG TABLET PO PRN ×2 (05:23→10:04)
[2018-08-30] MEDS: BLOOD SUGAR DIAGNOSTIC STRIP TEST SCH ×2 (07:51→12:23)
[2018-08-30 08:29] LABS: CHLORIDE 91 mEq/L (98-107)
[2018-08-30] MEDS: IPRATROPIUM/ALBUTEROL 0.5-3(2.5)MG/3ML NEB HHN PRN ×2 (08:39→12:45)
[2018-08-30] MEDS: BUDESONIDE 0.5MG/2ML NEB HHN SCH (08:39)
[2018-08-30] MEDS: PANTOPRAZOLE SODIUM 40 MG/VIAL IV SCH (08:43)
[2018-08-30] MEDS: INSULIN LISPRO 100 UNITS/ML SUBCUT SCH ×2 (08:56→13:07)
[2018-08-30 08:58] LABS: PHOSPHORUS 8.3 mg/dL (2.5-4.9)
[2018-08-30] MEDS: DIPHENHYDRAMINE 50MG/ML VIAL IV PRN (11:38)
[2018-08-30] MEDS ORDERED: PANT40VI PO (11:55)
[2018-08-30] MEDS: LEVOFLOXACIN 500MG PREMIX 100 ML IV SCH (14:21)
== END 2018-08-30 16:00 | disposition home or self-care (01) | DRG 710 ==
LOC: ER 22:30 → ENRESERV 08-24 02:00 → MICUSO 08-24 02:00 → 5EST 08-27 11:59
PROVIDERS: ADMIT Internal Medicine; ATTEND Internal Medicine
PROC: 5A1D70Z Performance of Urinary Filtration, Intermittent, Less than 6 Hours Per Day (ICD-10-PCS; 2018-08-25)
PROC: 0W9G3ZZ Drainage of Peritoneal Cavity, Percutaneous Approach (ICD-10-PCS; 2018-08-26)
PROC: 30233L1 Transfusion of Nonautologous Fresh Plasma into Peripheral Vein, Percutaneous Approach (ICD-10-PCS; 2018-08-26)
PROC: 30233K1 Transfusion of Nonautologous Frozen Plasma into Peripheral Vein, Percutaneous Approach (ICD-10-PCS; 2018-08-26)
PROC: 0KBP0ZZ Excision of Left Hip Muscle, Open Approach (ICD-10-PCS; principal; 2018-08-27)
PROC: 5A1D70Z Performance of Urinary Filtration, Intermittent, Less than 6 Hours Per Day (ICD-10-PCS; 2018-08-28)
PROC: 5A1D70Z Performance of Urinary Filtration, Intermittent, Less than 6 Hours Per Day (ICD-10-PCS; 2018-08-30)
DX: A41.9 Sepsis, unspecified organism (principal); J96.01 Acute respiratory failure with hypoxia; E11.00 Type 2 diabetes mellitus with hyperosmolarity without nonketotic hyperglycemic-hyperosmolar coma (NKHHC); I13.2 Hypertensive heart and chronic kidney disease with heart failure and with stage 5 chronic kidney disease, or end stage renal disease; E43 Unspecified severe protein-calorie malnutrition; E11.22 Type 2 diabetes mellitus with diabetic chronic kidney disease; I95.9 Hypotension, unspecified; D68.59 Other primary thrombophilia; I50.23 Acute on chronic systolic (congestive) heart failure; D68.9 Coagulation defect, unspecified; E11.10 Type 2 diabetes mellitus with ketoacidosis without coma; E11.51 Type 2 diabetes mellitus with diabetic peripheral angiopathy without gangrene; E87.1 Hypo-osmolality and hyponatremia; E87.8 Other disorders of electrolyte and fluid balance, not elsewhere classified; I27.20 Pulmonary hypertension, unspecified; L02.31 Cutaneous abscess of buttock; N18.6 End stage renal disease; D63.8 Anemia in other chronic diseases classified elsewhere; Z99.2 Dependence on renal dialysis; J44.9 Chronic obstructive pulmonary disease, unspecified; I42.9 Cardiomyopathy, unspecified; R18.8 Other ascites; B18.2 Chronic viral hepatitis C; L89.150 Pressure ulcer of sacral region, unstageable; D53.9 Nutritional anemia, unspecified; F17.210 Nicotine dependence, cigarettes, uncomplicated; K70.9 Alcoholic liver disease, unspecified; F12.10 Cannabis abuse, uncomplicated; I08.1 Rheumatic disorders of both mitral and tricuspid valves; L98.8 Other specified disorders of the skin and subcutaneous tissue; Z60.2 Problems related to living alone; W01.0XXA Fall on same level from slipping, tripping and stumbling without subsequent striking against object, initial encounter; Y93.89 Activity, other specified; Y99.8 Other external cause status; Y92.009 Unspecified place in unspecified non-institutional (private) residence as the place of occurrence of the external cause; Z82.49 Family history of ischemic heart disease and other diseases of the circulatory system; Z68.25 Body mass index [BMI] 25.0-25.9, adult; Z91.19 Patient's noncompliance with other medical treatment and regimen; Z89.512 Acquired absence of left leg below knee; Z87.81 Personal history of (healed) traumatic fracture; Z90.49 Acquired absence of other specified parts of digestive tract; Z89.421 Acquired absence of other right toe(s); Z91.81 History of falling
CPT/HCPCS: 36415; 49083; 71045; 72170; 72192; 73700; 76705; 80048; 80053; 82010; 82140; 82270; 82962; 83690; 83735; 84100; 84145; 85025; 85610; 85730; 86850; 86900; 86927; 87015; 87040; 87045; 87427; 87449; 87493; 89055; 93306; 93970; 94640; 96361; 96365; 96367; 96368; 96375; 97162; 99285; A6261; C9113; J1200; J1650; J1815; J1953; J1956; J2270; J2405; J2543; J3370; J3490; J7030; J7040; J7050; J7620; J7626; P9017; A4315